=== PATIENT | female | born 1980 | race American Indian/Alaskan Native ===

== ENCOUNTER 2019-03-01 10:01 | Emergency (ER) | payer OTHER ==
[2019-03-01 10:09] VITALS: BP 130/78
--- NOTE | 2019-03-01 10:18 | Emergency Department Report ---
ED ENT HPI - General Chief complaint: Dental/Oral Stated complaint: FACE PAIN Time Seen by Provider: 03/01/19 10:15 Source: patient Mode of arrival: Ambulatory Limitations: No Limitations - History of Present Illness Initial comments: poor dentition, pain x 1 day woke up with swelling this AM complaint: tooth pain -: Gradual, days(s) (1) Location: tooth # Severity: moderate Severity scale (0 -10): 5 Quality: aching Consistency: constant Improves with: none Worsens with: none Context- Dental: history of dental caries, poor dental care Associated Symptoms: denies: fever - Related Data Previous Rx's Medication Instructions Recorded Last Taken Type Amoxicillin [Amoxicillin TAB] 875 mg PO BID #20 tablet 03/01/19 Unknown Rx Allergies Allergy/AdvReac Type Severity Reaction Status Date / Time No Known Allergies Allergy Unverified 03/01/19 10:02 ED Dental HPI - General Chief complaint: Dental/Oral Stated complaint: FACE PAIN Time Seen by Provider: 03/01/19 10:15 Source: patient Mode of arrival: Ambulatory Limitations: No Limitations - Related Data Previous Rx's Medication Instructions Recorded Last Taken Type Amoxicillin [Amoxicillin TAB] 875 mg PO BID #20 tablet 03/01/19 Unknown Rx Allergies Allergy/AdvReac Type Severity Reaction Status Date / Time No Known Allergies Allergy Unverified 03/01/19 10:02 ED Review of Systems ROS: Stated complaint: FACE PAIN Other details as noted in HPI Comment: All other systems reviewed and negative ENT: as per HPI ED Past Medical Hx - Past Medical History Previous Medical History?: No - Surgical History Past Surgical History?: No - Social History Smoking Status: Never Smoker Substance Use Type: None - Medications Home Medications: Home Medications Medication Instructions Recorded Confirmed Last Taken Type Amoxicillin [Amoxicillin TAB] 875 mg PO BID #20 tablet 03/01/19 Unknown Rx ED Physical Exam - General Limitations: No Limitations General appearance: alert, in no apparent distress - Head Head exam: Present: atraumatic - Eye Eye exam: Present: normal appearance, PERRL, EOMI - ENT ENT exam: Present: normal orophraynx, other (very poor dentition especially upper gumline on L, with associated mild facial edema locally. No signs airway compromise or neck swelling. Uvula midline. ) - Neck Neck exam: Present: normal inspection, full ROM. Absent: tenderness - Neurological Exam Neurological exam: Present: alert, oriented X3 - Psychiatric Psychiatric exam: Present: normal affect, normal mood - Skin Skin exam: Present: warm, dry, intact, normal color ED Course Vital Signs 03/01/19 10:07 Temperature 99.1 F Pulse Rate 107 H Respiratory 16 Rate Blood Pressure 130/78 [Left] O2 Sat by Pulse 99 Oximetry ED Medical Decision Making - Medical Decision Making dental abscess plan- abx, she will fu with dentist no sign ludwigs angina or airway compromise motrin for pain, pt agrees - Differential Diagnosis dental pain, abscess Critical care attestation.: If time is entered above; I have spent that time in minutes in the direct care of this critically ill patient, excluding procedure time. ED Disposition Clinical Impression: Dental abscess Disposition: - TO HOME OR SELFCARE Is pt being admited?: No Condition: Good Instructions: Dental Abscess (ED) Additional Instructions: Follow up with dentist this week. Prescriptions: Amoxicillin [Amoxicillin TAB] 875 mg PO BID #20 tablet Time of Disposition: 10:17
== END 2019-03-01 10:22 | disposition home or self-care (01) ==
LOC: ED 10:01
DX: K04.7 Periapical abscess without sinus (principal)
CPT/HCPCS: 99282